=== PATIENT | female | born 2005 | race Hispanic/Latino ===

== ENCOUNTER 2025-01-06 12:39 | Emergency (ER) | payer BC ==
[~2025-01-06] VITALS: Ht 175.3 cm; Wt 97.5 kg
[2025-01-06] MEDS: 0.9%NACL 1000ML 1,000 ML IV ONE (13:28)
--- NOTE | 2025-01-06 13:33 | ERN ---
General Chief Complaint: Syncope Stated Complaint: MECHANICAL FALL Time Seen by MD: 12:40 History of Present Illness Initial Comments 19-year-old female who presents for syncopal episode. Patient was exercising. She reported some palpitations and difficulty catching her breath. She had a brief syncopal episode that was witnessed. She fell onto her left elbow. She immediately came to. No vomiting. No further palpitations. She has no symptoms now. She has been in her normal state of health. Allergies: Coded Allergies: No Known Allergies (Unverified Allergy, Unknown, 01/06/25) Past Medical History Past Medical History: High Cholesterol, Hypothyroid Medical History Other: PCOS Past Surgical History: Tonsillectomy Surgical History Other: LT OVARIAN CYST Female( History) LMP: Dec 24, 2024 ROS Dictation CONSTITUTIONAL: No chills, no fever, no weakness, no diaphoresis, no malaise. HEAD/FACE: No signs of trauma. EENT: No eye pain, no blurred vision, no tearing, no double vision, no ear pain, no ear discharge, no nose pain, no nasal congestion, no throat pain, no throat swelling, no mouth pain. RESPIRATORY: No cough, no orthopnea, no SOB, no stridor, no wheezing. CARDIOVASCULAR: Syncope GASTROINTESTINAL/ABDOMINAL: No abdominal pain, no constipation, no diarrhea, no nausea, no vomiting. GENITOURINARY: No abnormal discharge, no dysuria, no frequent urination, no hematuria. No complaints of pain in the genitals. MUSCULOSKELETAL: No back pain, no gout, no joint pain, no joint swelling, no muscle pain, no muscle stiffness, no neck pain. INTEGUMENTARY: No change in color, no change in hair/nails, no dryness, no lesion, no lumps, no rash. NEUROLOGICAL/PSYCH: No anxiety, not depressed, no emotional problem, no headache, no numbness, no pre-existing deficit, no history of seizures, no tremors, no weakness. HEMATOLOGIC/LYMPHATIC: Not anemic, no history of blood clots, no apparent bleeding, no bruising, glands not swollen. All Systems Negative, Except as Noted. Physical Exam Physical Exam Dictation VITAL SIGNS: Reviewed. GENERAL APPEARANCE: Alert, oriented x3, no acute distress. HEAD AND FACE: Non-traumatic. EYES: PERRL, pink conjunctivas, eyelid no trauma, anterior chamber clear. EARS: Pinnas intact and no signs of trauma or erythema. Ear canals clear and no discharge. TMs no erythema. NOSE: No discharge, no bleeding. OROPHARYNX: Mouth normal, teeth no caries, tongue pink. Pharynx clear, no erythema. Tonsils no exudates, no abscesses noted. Mucous membrane moist. NECK: Supple, non-tender, no thyromegaly, no masses, no JVD, no bruits. BREAST: Deferred. CHEST: No tenderness, no crepitus, no paradoxical movement, no retractions. LUNGS: Clear, well-ventilated, symmetric, no rales, no wheezing, no rhonchi, no stridor, good breath sounds bilaterally. HEART: Regular rate, regular rhythm, no murmur, no gallops. VASCULAR: No peripheral edema. ABDOMEN: Soft, positive bowel sounds, nondistended, no guarding, nontender, no rebound, no masses no hepatomegaly, no splenomegaly, no Dooley's sign, no hernias. RECTAL: Deferred. GENITAL: Deferred. NEUROLOGICAL: Normal speech, gross motor function intact, gross sensory function intact. MUSCULOSKELETAL: Neck nontender, full range of motion, back nontender, full range of motion. EXTREMITIES: Nontender, full range of motion. SKIN: Color pink, dry, no turgor, no rash, no lacerations, no abrasions, no contusions. LYMPHATICS: Deferred. Results Laboratory and Microbiology Lab and Micro Result Laboratory Tests Test 01/06/25 13:41 White Blood Count 6.3 K/uL (4.8-10.8) Red Blood Count 4.46 MIL/uL (4.00-5.50) Hemoglobin 14.7 g/dL (12.0-16.0) Hematocrit 42.8 % (36-48) Mean Corpuscular Volume 96.0 fL (80-100) Mean Corpuscular Hemoglobin 33.0 pg (27.0-33.0) Mean Corpuscular Hemoglobin Concent 34.3 g/dL (32.0-36.0) Red Cell Distribution Width 12.3 % (11.0-15.5) Platelet Count 233 K/uL (130-400) Mean Platelet Volume 9.7 fL (7.5-10.5) Immature Granulocyte % (Auto) 0.8 % (0-1) Neutrophils (%) (Auto) 56.9 % (40.0-77.0) Lymphocytes (%) (Auto) 33.0 % (21.0-51.0) Monocytes (%) (Auto) 7.1 % (3.0-13.0) Eosinophils (%) (Auto) 1.4 % (0.0-8.0) Basophils (%) (Auto) 0.8 % (0.0-5.0) Neutrophils # (Auto) 3.6 K/uL (1.8-7.7) Lymphocytes # (Auto) 2.1 K/uL (1.0-4.8) Monocytes # (Auto) 0.5 K/uL (0.1-1.0) Eosinophils # (Auto) 0.09 K/uL (0.00-0.70) Basophils # (Auto) 0.05 K/uL (0.00-0.20) Absolute Immature Granulocyte (auto 0.05 K/uL (0-1) Nucleated Red Blood Cells 0.0 % (0.0-0.19) Sodium Level 142 mmol/L (136-145) Potassium Level 3.8 mmol/L (3.5-5.1) Chloride Level 105 mmol/L (101-111) Carbon Dioxide Level 31 mmol/L (21-32) Blood Urea Nitrogen 10 mg/dL (7-18) Creatinine 0.8 mg/dL (0.5-1.0) Glomerular Filtration Rate Calc 108 mL/min (>90) Random Glucose 101 mg/dL (70-105) Total Calcium 9.0 mg/dL (8.5-10.1) Total Creatine Kinase 96 U/L (21-232) Troponin I High Sensitivity < 4.0 ng/L (4-50) L Serum Test, Qualitative NEGATIVE (NEGATIVE) MDM CC: Syncopal episode Historian: Patient Comorbidities: None Limitations by social determinants of health: None Differential diagnosis: Cardiac syncope, vasovagal syncope, anemia, dehydration, other. EKG: Sinus rhythm, rate 64, normal axis, good R-wave progression, intervals are stable no STEMI. Independently interpreted by me. Vital signs: Stable, remained stable in the ER Clinical exam is unremarkable. No signs of heart failure. No extra heart tones. Clear lungs. No signs of PE. Labs ( independently ordered and interpreted by me ): CBC normal, metabolic panel normal, troponin normal, CK normal, hCG is negative. CXR (independently interpreted by me): No cardiomegaly pleural effusions or focal infiltrates. Based on the patient's presentation I suspect a vasovagal episode. There is no signs of arrhythmia, no signs of electrolyte abnormality, no signs of anemia. Very low suspicion this is cardiac in nature. Patient was returned to baseline. Treatment in ED: 1 L normal saline Plan: We will DC to PCP follow up. ED Course Orders Procedure Category Date Status Time Cbc With Differential LAB 01/06/25 Complete 13:11 Cardiac Panel LAB 01/06/25 Complete 13:11 Testing, LAB 01/06/25 Complete Serum Hcg 13:11 Chest 1vw RAD 01/06/25 Taken 13:11 12 Lead Ekg Tracing- EKG 01/06/25 Complete Technical 13:11 0.9%Nacl 1000ml (Ns PHA 01/06/25 Complete 1000ml) 13:30 Basic Metabolic Panel LAB 01/06/25 Complete 13:11 Current Medications Medications (Trade) Dose Ordered Sig/Kale Route PRN Reason Start Time Stop Time Status Last Admin Dose Admin Sodium Chloride 1,000 ml @ 0 mls/hr ONCE ONCE IV 01/06/25 13:30 01/06/25 13:31 DC 01/06/25 13:28 Vital Signs Date Time Temp Pulse Resp B/P (MAP) Pulse Ox O2 Delivery O2 Flow Rate FiO2 01/06/25 12:55 99.1 95 16 128/80 100 Room Air 0 DX & DISP Disposition: Discharge Departure Impression: Primary Impression: Syncope Condition: Stable Additional Instructions: Your symptoms are consistent with a syncopal episode. As we discussed, you did not appear to have any of the dangerous causes of syncope. Your vital signs have been stable. Your chest x-ray is normal. You EKGs normal. Your blood work (CBC, BNP, CK, troponin, hCG) is unremarkable. As we discussed, drink plenty of liquids. I recommend that you monitor for palpitations, chest pains, further episodes of dizziness or syncope, or any other concerning symptom. Please return to the emergency department or follow up with your primary doctor if you continue with symptoms. Referrals: KELLY GRIGSBY MD (PCP) JEFF FELICIANO DO Jan 06, 2025 13:32
--- NOTE | 2025-01-06 13:46 | EKG ---
[facility] Test Date: 2025-01-06 Test Time: 13:44:43 Pat Name: MAULIK MARROQUIN Department: ED Room: Gender: Female [employer]: [id number] : 2005 Requested By: JEFF FELICIANO Order Number: [id number] Reading MD: Measurements Intervals Carman Rate: 64 P: 14 WV: 129 QRS: 56 QRSD: 91 T: 51 QT: 376 QTc: 389 Interpretive Statements Sinus rhythm Please click the below link to view image of tracing.
[2025-01-06 14:09] LABS: BASOPHILS # (AUTO) 0.05 K/uL (0.00-0.20); BASOPHILS % (AUTO) 0.8 % (0.0-5.0); EOSINOPHILS # (AUTO) 0.09 K/uL (0.00-0.70); EOSINOPHILS % (AUTO) 1.4 % (0.0-8.0); HEMATOCRIT 42.8 % (36-48); IMMATURE GRANULOCYTE ABSOLUTE 0.05 K/uL (0-1); LYMPHOCYTES # (AUTO) 2.1 K/uL (1.0-4.8); MEAN CORPUSCULAR HGB CONC 34.3 g/dL (32.0-36.0); MONOCYTES # (AUTO) 0.5 K/uL (0.1-1.0); MONOCYTES % (AUTO) 7.1 % (3.0-13.0); NEUTROPHILS # (AUTO) 3.6 K/uL (1.8-7.7); NEUTROPHILS % (AUTO) 56.9 % (40.0-77.0); PLATELET COUNT (AUTO) 233 K/uL (130-400); RED BLOOD CELL COUNT(AUTO) 4.46 MIL/uL (4.00-5.50); RED CELL DISTRIBUTION WIDTH 12.3 % (11.0-15.5); WHITE BLOOD COUNT (AUTO) 6.3 K/uL (4.8-10.8)
[2025-01-06 14:16] LABS: CARBON DIOXIDE 31 mmol/L (21-32); CHLORIDE 105 mmol/L (101-111); CREATININE 0.8 mg/dL (0.5-1.0); GLOMERULAR FILTR. RATE CALC 108 mL/min (>90); GLUCOSE,RANDOM 101 mg/dL (70-105); POTASSIUM 3.8 mmol/L (3.5-5.1); SODIUM SERUM 142 mmol/L (136-145); UREA NITROGEN, BLOOD 10 mg/dL (7-18)
[2025-01-06 14:23] LABS: CREATINE KINASE, TOTAL 96 U/L (21-232)
[2025-01-06 15:23] VITALS: BP 121/79; PULSE 90; RESP 18; TEMP 98.2; O2SAT 100
--- NOTE | 2025-01-06 16:56 | HMCIMG ---
CHEST 1VW HISTORY: Syncope COMPARISON: None FINDINGS: A frontal projection of the chest was obtained. No acute pulmonary infiltrates is seen. The heart is borderline enlarged. Prominent interstitial markings are seen. Degenerative changes are seen. No evidence of aortic calcification is seen. IMPRESSION: 1. No acute pulmonary infiltrate is seen.
== END 2025-01-06 15:32 | disposition home or self-care (01) ==
LOC: EDH 12:39
DX: R55 Syncope and collapse (principal); E78.00 Pure hypercholesterolemia, unspecified; E03.9 Hypothyroidism, unspecified; Z90.89 Acquired absence of other organs
CPT/HCPCS: 99284; 96360; 71045; 82550; 84484; 80048; 84703; 85025; 36415; 93005; J7030